=== PATIENT | male | born 1965 | race Caucasian/White ===

== ENCOUNTER 2017-09-23 23:58 | Observation (INO) | payer BC, OTHER ==
[2017-09-24] MEDS ORDERED: Sodium Chloride 0.9% 10 ML Syringe FLUSH PRN (00:07)
--- NOTE | 2017-09-24 00:09 | EDM.PDOC ---
ED HPI GENERAL MEDICAL PROBLEM - General Chief Complaint: Respiratory Problem Stated Complaint: Shortness of breath, cough Time Seen by Provider: 09/24/17 00:04 Source of Information: Reports: Patient, Family, RN, RN Notes Reviewed History Limitations: Reports: No Limitations - History of Present Illness INITIAL COMMENTS - FREE TEXT/NARRATIVE: Patient presents to the ED at [facility] with a one day history of cough, SOB, and fevers. Patient's states symptoms began yesterday with a fever of 102. Patient has not tried any OTC medications. Patient states his cough is dry and non-productive. No chest pain. He states he feels very SOB. Patient has a history of a liver transplant so the is concerned about being immunocompromised. Patient denies any N/V/D. No close contacts or family members with similar symptoms. He does state his symptoms started as a head cold and progressed since then. Onset: Gradual Onset Date: 09/23/17 Duration: Constant, Getting Worse left upper chest Pain Score (Numeric/FACES): 5 - Related Data Allergies Allergy/AdvReac Type Severity Reaction Status Date / Time No Known Allergies Allergy Verified 09/24/17 00:18 Home Meds: Home Meds Aspirin [Halfprin] 81 mg PO DAILY 09/24/17 [History] Tacrolimus [Prograf] 3 mg PO BID 09/24/17 [History] Past Medical History Cardiovascular History: Reports: Hypertension Gastrointestinal History: Reports: Hepatitis (Alcoholic Hepatitis with ascites) Psychiatric History: Reports: Depression - Past Surgical History Other GI Surgeries/Procedures: s/p Liver transplant 2013 Social & Family History - Family History Family Medical History: Noncontributory - Tobacco Use Smoking Status *Q: Never Smoker Tobacco Use Within Last Twelve Months: No - Alcohol Use Alcohol Use History: Yes Alcohol Use in Last Twelve Months: No - Living Situation & Occupation Living situation: Reports: , with Spouse Occupation: Employed ED ROS GENERAL - Review of Systems Review Of Systems: See Below Constitutional: Reports: Fever, Decreased Appetite. Denies: Chills, Weakness HEENT: Reports: Sinus Problem Respiratory: Reports: Shortness of Breath. Denies: Wheezing, Sputum Cardiovascular: Denies: Chest Pain, Palpitations GI/Abdominal: Denies: Abdominal Pain, Nausea, Vomiting Skin: Reports: No Symptoms Neurological: Reports: No Symptoms. Denies: Dizziness, Headache ED EXAM, GENERAL - Physical Exam Exam: See Below Exam Limited By: No Limitations General Appearance: Alert, No Apparent Distress Eye Exam: Bilateral Eye: Normal Inspection, PERRL Ears: Normal External Exam, Normal Canal, Hearing Grossly Normal Ear Exam: Bilateral Ear: TM normal Nose: Clear Rhinorrhea Throat/Mouth: Normal Inspection, Normal Oropharynx, No Airway Compromise Neck: Supple Respiratory/Chest: No Respiratory Distress, Decreased Breath Sounds Cardiovascular: Normal Peripheral Pulses, Tachycardia Peripheral Pulses: 2+: Radial (L), Radial (R) GI/Abdominal: Normal Bowel Sounds, Soft, Non-Tender Neurological: Alert, Oriented Skin Exam: Warm, Dry, Intact, Normal Color, No Rash EKG INTERPRETATION EKG Date: 09/24/17 Time: 00:10 Rhythm: NSR Rate (Beats/Min): 93 Marvin: Normal P-Wave: Present QRS: Normal ST-T: Normal QT: Normal VA/PQ Interval: 0.14 Comparison: NA - No Prior EKG EKG Interpretation Comments: 1. Sinus Rhythm 2. Possible IWMI, probably old 3. Borderline ECG Course - Vital Signs Last Recorded V/S: Last Vital Signs Temp 37.0 C 09/23/17 23:58 Pulse 102 H 09/23/17 23:58 Resp 32 H 09/23/17 23:58 BP 166/87 H 09/23/17 23:58 Pulse Ox 100 09/23/17 23:58 - Orders/Labs/Meds Orders: Active Orders 24 hr Category Date Time Status Admission Status [Patient Status] [ADT] Routine ADT 09/24/17 01:34 Ordered EKG 12 Lead [EKG Documentation Completion] [RC] STAT Care 09/24/17 00:05 Ordered Chest 2V [CR] Stat Exams 09/24/17 00:06 Taken CARBOXY-THC BY GC/MS Stat Lab 09/24/17 01:14 Received Sodium Chloride 0.9% [Saline Flush] Med 09/24/17 00:07 Active 10 ml FLUSH ASDIRECTED PRN Peripheral IV Insertion Adult [OM.PC] Routine Oth 09/24/17 00:07 Ordered Medication Orders Sodium Chloride (Saline Flush) 10 ml FLUSH ASDIRECTED PRN PRN Reason: Keep Vein Open Labs: Laboratory Tests 09/24/17 09/24/17 09/24/17 Range/Units 00:29 00:29 00:29 WBC 7.7 (4.0-10.0) x10^3/uL RBC 4.51 (4.5-6.0) x10^6/uL Hgb 14.8 (14.0-18.0) g/dL Hct 41.8 (40.0-52.0) % MCV 92.7 (78.0-93.0) fL MCH 32.8 H (26.0-32.0) pg MCHC 35.4 (32.0-36.0) g/dL RDW Coeff of Luma 12.1 (10.0-15.0) % Plt Count 170 (130-400) x10^3/uL Neut % (Auto) 82.0 H (50.0-80.0) % Lymph % (Auto) 5.2 L (25.0-50.0) % [place] % (Auto) 9.3 (2.0-11.0) % Eos % (Auto) 3.1 (0.0-4.0) % Baso % (Auto) 0.4 (0.2-1.2) % PT 10.5 (9.8-11.8) SEC INR 1.0 L (2.0-3.5) D-Dimer, Quantitative 0.55 (<=0.58) mg/LFEU Sodium 134 L (136-145) mmol/L Potassium 4.2 (3.5-5.1) mmol/L Chloride 100 (98-107) mmol/L Carbon Dioxide 23 (21-32) mmol/L BUN 25 H (7-18) mg/dL Creatinine 1.6 H (0.70-1.30) mg/dL Est Cr Clr Drug Dosing 48.18 mL/min Estimated GFR (MDRD) 45 Glucose 196 H (74-106) mg/dL Lactic Acid (0.4-2.0) mmol/L Calcium 8.6 (8.5-10.1) mg/dL Corrected Calcium 8.92 (8.5-10.1) mg/dL Total Bilirubin 0.9 (0.2-1.0) mg/dL AST 34 (15-37) U/L ALT 54 (16-63) U/L Alkaline Phosphatase 110 (46-116) U/L Creatine Kinase 96 (39-308) U/L Creatine Kinase Index TNP CK-MB (CK-2) TNP Troponin I < 0.017 (<=0.056) ng/mL C-Reactive Protein 4.1 H (<=0.9) mg/dL Total Protein 7.1 (6.4-8.2) g/dL Albumin 3.6 (3.4-5.0) g/dL Globulin 3.5 Albumin/Globulin Ratio 1.03 Urine Color (YELLOW) Urine Appearance (CLEAR) Urine pH (5.0-8.0) Ur Specific [place] Urine Protein (NEGATIVE) mg/dL Urine Glucose (UA) (NEGATIVE) mg/dL Urine Ketones (NEGATIVE) mg/dL Urine Occult Blood (NEGATIVE) Urine Nitrite (NEGATIVE) Urine Bilirubin (NEGATIVE) Urine Urobilinogen (0.2) EU/dL Ur Leukocyte Esterase (NEGATIVE) Urine RBC (NOT SEEN) /HPF Urine WBC (NOT SEEN) /HPF Ur Squamous Epith Cells (NEGATIVE) /HPF Urine Bacteria (NEGATIVE) /HPF Urine Mucus (NEGATIVE) /LPF Urine Opiates Screen (NEAGTIVE) Ur Buprenorphine Scrn (NEGATIVE) Ur Oxycodone Screen (NEGATIVE) Urine Methadone Screen (NEGATIVE) Ur Barbiturates Screen (NEGATIVE) Ur Tricyclics Screen (NEGATIVE) Ur Amphetamine Screen (NEGATIVE) U Methamphetamines Scrn (NEGATIVE) Urine MDMA Screen (NEGATIVE) U Benzodiazepines Scrn (NEGATIVE) U Cocaine Metab Screen (NEGATIVE) U Marijuana (THC) Screen (NEGATIVE) 09/24/17 09/24/17 09/24/17 Range/Units 00:29 01:14 01:14 WBC (4.0-10.0) x10^3/uL RBC (4.5-6.0) x10^6/uL Hgb (14.0-18.0) g/dL Hct (40.0-52.0) % MCV (78.0-93.0) fL MCH (26.0-32.0) pg MCHC (32.0-36.0) g/dL RDW Coeff of Luma (10.0-15.0) % Plt Count (130-400) x10^3/uL Neut % (Auto) (50.0-80.0) % Lymph % (Auto) (25.0-50.0) % [place] % (Auto) (2.0-11.0) % Eos % (Auto) (0.0-4.0) % Baso % (Auto) (0.2-1.2) % PT (9.8-11.8) SEC INR (2.0-3.5) D-Dimer, Quantitative (<=0.58) mg/LFEU Sodium (136-145) mmol/L Potassium (3.5-5.1) mmol/L Chloride (98-107) mmol/L Carbon Dioxide (21-32) mmol/L BUN (7-18) mg/dL Creatinine (0.70-1.30) mg/dL Est Cr Clr Drug Dosing mL/min Estimated GFR (MDRD) Glucose (74-106) mg/dL Lactic Acid 2.0 (0.4-2.0) mmol/L Calcium (8.5-10.1) mg/dL Corrected Calcium (8.5-10.1) mg/dL Total Bilirubin (0.2-1.0) mg/dL AST (15-37) U/L ALT (16-63) U/L Alkaline Phosphatase (46-116) U/L Creatine Kinase (39-308) U/L Creatine Kinase Index CK-MB (CK-2) Troponin I (<=0.056) ng/mL C-Reactive Protein (<=0.9) mg/dL Total Protein (6.4-8.2) g/dL Albumin (3.4-5.0) g/dL Globulin Albumin/Globulin Ratio Urine Color Dark yellow H (YELLOW) Urine Appearance Clear (CLEAR) Urine pH 7.0 (5.0-8.0) Ur Specific [place] 1.015 Urine Protein Trace H (NEGATIVE) mg/dL Urine Glucose (UA) Negative (NEGATIVE) mg/dL Urine Ketones Negative (NEGATIVE) mg/dL Urine Occult Blood Negative (NEGATIVE) Urine Nitrite Negative (NEGATIVE) Urine Bilirubin Negative (NEGATIVE) Urine Urobilinogen 0.2 (0.2) EU/dL Ur Leukocyte Esterase Negative (NEGATIVE) Urine RBC Not seen (NOT SEEN) /HPF Urine WBC Not seen (NOT SEEN) /HPF Ur Squamous Epith Cells Not seen (NEGATIVE) /HPF Urine Bacteria Not seen (NEGATIVE) /HPF Urine Mucus Not seen (NEGATIVE) /LPF Urine Opiates Screen Negative (NEAGTIVE) Ur Buprenorphine Scrn Negative (NEGATIVE) Ur Oxycodone Screen Negative (NEGATIVE) Urine Methadone Screen Negative (NEGATIVE) Ur Barbiturates Screen Negative (NEGATIVE) Ur Tricyclics Screen Negative (NEGATIVE) Ur Amphetamine Screen Negative (NEGATIVE) U Methamphetamines Scrn Negative (NEGATIVE) Urine MDMA Screen Negative (NEGATIVE) U Benzodiazepines Scrn Negative (NEGATIVE) U Cocaine Metab Screen Negative (NEGATIVE) U Marijuana (THC) Screen Positive H (NEGATIVE) Meds: Medications Generic Name Dose Route Start Last Admin Trade Name Freq PRN Reason Stop Dose Admin Sodium Chloride 10 ml 09/24/17 00:07 Saline Flush FLUSH ASDIRECTED PRN Keep Vein Open Discontinued Medications Generic Name Dose Route Start Last Admin Trade Name Freq PRN Reason Stop Dose Admin Sodium Chloride 1,000 mls @ 999 mls/hr 09/24/17 00:17 09/24/17 00:50 Normal Saline IV 09/24/17 01:17 999 mls/hr NOW STA Administration Levalbuterol HCl 1.25 mg 09/24/17 00:17 09/24/17 00:30 Xopenex NEB 09/24/17 00:18 1.25 mg ONETIME ONE Administration Lorazepam 1 mg 09/24/17 00:18 09/24/17 00:57 Ativan IVPUSH 09/24/17 00:19 1 mg ONETIME ONE Administration Methylprednisolone Sodium Succinate 125 mg 09/24/17 00:19 09/24/17 00:52 Solu-Medrol IVPUSH 09/24/17 00:20 125 mg ONETIME ONE Administration - Radiology Interpretation Free Text/Narrative:: CXR: Normal chest xray - see scanned report in EMR Departure - Departure Time of Disposition: 01:36 Disposition: Refer to Observation Condition: Good Clinical Impression: Shortness of breath at rest, Dehydration - Discharge Information - Problem List & Annotations (1) Shortness of breath at rest SNOMED Code(s): 667900844 Code(s): R06.02 - SHORTNESS OF BREATH Status: Acute Priority: Medium Current Visit: Yes Onset Date: ~09/23/17 (2) Dehydration SNOMED Code(s): 39096620 Code(s): E86.0 - DEHYDRATION Status: Acute Priority: Medium Current Visit: Yes Onset Date: ~09/23/17 - Problem List Review Problem List Initiated/Reviewed/Updated: Yes - My Orders Last 24 Hours: My Active Orders 09/24/17 00:05 EKG 12 Lead [EKG Documentation Completion] [RC] STAT 09/24/17 00:06 Chest 2V [CR] Stat 09/24/17 00:07 Sodium Chloride 0.9% [Saline Flush] 10 ml FLUSH ASDIRECTED PRN Peripheral IV Insertion Adult [OM.PC] Routine 09/24/17 01:14 CARBOXY-THC BY GC/MS Stat 09/24/17 01:34 Admission Status [Patient Status] [ADT] Routine - Assessment/Plan Admission H&P: Please use this note as an admission H&P Last 24 Hours: My Active Orders 09/24/17 00:05 EKG 12 Lead [EKG Documentation Completion] [RC] STAT 09/24/17 00:06 Chest 2V [CR] Stat 09/24/17 00:07 Sodium Chloride 0.9% [Saline Flush] 10 ml FLUSH ASDIRECTED PRN Peripheral IV Insertion Adult [OM.PC] Routine 09/24/17 01:14 CARBOXY-THC BY GC/MS Stat 09/24/17 01:34 Admission Status [Patient Status] [ADT] Routine Plan: Labs and xray discussed with patient. He continue to have chills, generalized body aches, and headache. Continue to have a low grade fever and SOB. Labs do show dehydration. Will admit observation to see if anything shows up and given patients continues symptoms.
[2017-09-24] MEDS ORDERED: Sodium Chloride 0.9% 1,000 ML IV STA (00:17)
[2017-09-24] MEDS ORDERED: Levalbuterol HCl 1.25 MG/0.5 ML Neb NEB ONE (00:17)
[2017-09-24] MEDS ORDERED: LORazepam 2 MG/ML MDV IVPUSH ONE (00:18)
[2017-09-24] MEDS ORDERED: methylPREDNISolone Sodium Succinate 125 MG/2 ML SDV IVPUSH ONE (00:19)
[2017-09-24 01:08] LABS: CHLORIDE,CL 100 mmol/L (98-107); SODIUM,NA 134 mmol/L (136-145)
[2017-09-24] MEDS ORDERED: Ondansetron 4 MG Tab.DIS PO PRN (01:45)
[2017-09-24] MEDS ORDERED: Acetaminophen 325 MG Tab PO PRN (01:45)
[2017-09-24] MEDS ORDERED: Acetaminophen/HYDROcodone 325-5 MG Tab PO PRN (01:45)
[2017-09-24] MEDS ORDERED: Sodium Chloride 0.9% 1,000 ML IV SCH (02:00)
[2017-09-24] MEDS ORDERED: Azithromycin 500 MG in Sodium Chloride 0.9% 250 ML IV SCH (02:00)
[2017-09-24] MEDS: Albuterol/Ipratropium 3.0-0.5 MG/3 ML Neb Soln NEB PRN ×2 (02:36→10:20)
--- NOTE | 2017-09-24 02:41 | PCM.HP ---
H&P History of Present Illness - General Date of Service: 09/24/17 Admit Problem/Dx: Admission Diagnosis/Problem Admission Diagnosis/Problem Shortness of breath Dehydration Source of Information: Patient, Family, RN, RN Notes Reviewed History Limitations: Reports: No Limitations - History of Present Illness Initial Comments - Free Text/Narative: 52-year-old male patient presented to the emergency room at [facility] with a one-day history of worsening shortness of breath, dry nonproductive cough, chills, generalized body aches. The patient states that his symptoms began around noon yesterday. The patient did not try any [id number] cold and flu medications for his symptoms. The patient states that his symptoms originally started last Saturday with an upper respiratory symptomatology. The patient states he got concerned today when the shortness of breath started and progressively got worse. The patient is concerned because he is immunocompromised status post liver transplant. The patient is currently taking Prograf. The patient did not have any nausea vomiting or diarrhea. No focal neurological deficits. The patient did not have any acute chest pain. In the emergency room the patient was given 1 DuoNeb with good relief and he was also given IV Ativan and IV Solu-Medrol. Chest x-ray did not show any acute findings. The patient's blood work was essentially normal with the exception of dehydration. The patient did test positive for marijuana on his drug screen. The patient was given 1 L of normal saline due to being immunocompromised versus being given lactated Ringer's. EKG was normal. Cardiac enzymes were negative. The patient has a low suspicion for PE given her normal d-dimer. Symptom Onset Date: 09/23/17 Duration of Symptoms: Reports: Waxing/Waning Location: Reports: Generalized Quality: Reports: Ache Severity: Mild Improves with: Reports: Rest Worsens with: Reports: Movement Context: Denies: Sick Contact, Trauma Associated Symptoms: Reports: Cough, Fever/Chills, Headaches Generalized Pain Score (Numeric/FACES): 7 left upper chest Pain Score (Numeric/FACES): 5 - Related Data Allergies/Adverse Reactions: Allergies Allergy/AdvReac Type Severity Reaction Status Date / Time No Known Allergies Allergy Verified 09/24/17 00:18 Home Medications: Home Meds Aspirin [Halfprin] 81 mg PO DAILY 09/24/17 [History] Tacrolimus [Prograf] 3 mg PO BID 09/24/17 [History] Past Medical History Cardiovascular History: Reports: Hypertension Gastrointestinal History: Reports: Hepatitis Other Gastrointestinal History: incisional hernia Psychiatric History: Reports: Depression - Infectious Disease History 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,B,C - Past Surgical History HEENT Surgical History: Reports: None Cardiovascular Surgical History: Reports: None GI Surgical History: Reports: Appendectomy, Cholecystectomy, Colonoscopy, Hernia Repair/Other Other GI Surgeries/Procedures: s/p Liver transplant 2014 Other Musculoskeletal Surgeries/Procedures:: right knee cap replaced Social & Family History - Family History Family Medical History: Noncontributory - Tobacco Use Smoking Status *Q: Never Smoker Second Hand Smoke Exposure: No - Caffeine Use Caffeine Use: Reports: None - Alcohol Use Days Per Week of Alcohol Use: 1 Number of Drinks Per Day: 7 Total Drinks Per Week: 7 Date of Last Drink: 09/22/16 - Recreational Drug Use Recreational Drug Use: Yes Drug Use in Last 12 Months: Yes Recreational Drug Type: Reports: Marijuana/Hashish Recreational Drug Use Frequency: Weekly - Living Situation & Occupation Living situation: Reports: , with Spouse Occupation: Employed H&P Review of Systems - Review of Systems: Review Of Systems: See Below General: Reports: Fever, Chills, Decreased Appetite, Other (generalized body aches). Denies: Weakness HEENT: Reports: Rhinitis Pulmonary: Reports: Shortness of Breath, Cough. Denies: Sputum Cardiovascular: Denies: Chest Pain, Palpitations Gastrointestinal: Denies: Abdominal Pain, Nausea, Vomiting Skin: Reports: No Symptoms Neurological: Reports: Headache. Denies: Dizziness Exam - Exam Exam: See Below - Vital Signs Vital Signs: Last Vital Signs Temp 37.2 C 09/24/17 01:45 Pulse 100 09/24/17 01:45 Resp 22 H 09/24/17 01:45 BP 162/100 H 09/24/17 01:45 Pulse Ox 95 09/24/17 01:45 Weight: 100.153 kg - Exam General: Alert, Oriented HEENT: Conjunctiva Clear, Posterior Pharynx Clear, Pupils Equal, Pupils Reactive Neck: Supple Lungs: Normal Respiratory Effort, Decreased Breath Sounds Cardiovascular: Regular Rate, Regular Rhythm, Normal S1, Normal S2 GI/Abdominal Exam: Normal Bowel Sounds, Soft, Non-Tender Peripheral Pulses: 2+: Radial (L), Radial (R) Skin: Warm, Dry, Intact Neuro Extensive - Mental Status: Alert, Oriented x3 - Patient Data Result Diagrams: 09/24/17 00:29 09/24/17 00:29 *Q Meaningful Use (ADM) - VTE *Q VTE Criteria *Q: No risk for falls - Stroke *Q Stroke Criteria *Q: - AMI *Q AMI Criteria *Q: - Problem List (1) Shortness of breath at rest SNOMED Code(s): 629769086 ICD Code: R06.02 - SHORTNESS OF BREATH Status: Acute Priority: Medium Current Visit: Yes Onset Date: ~09/23/17 (2) Dehydration SNOMED Code(s): 63392750 ICD Code: E86.0 - DEHYDRATION Status: Acute Priority: Medium Current Visit: Yes Onset Date: ~09/23/17 (3) Alcoholic hepatitis with ascites SNOMED Code(s): 618818926 ICD Code: K70.11 - ALCOHOLIC HEPATITIS WITH ASCITES Status: Chronic Current Visit: No Problem Details: Continue with no alcohol; patient is s/p liver transplant (4) Essential hypertension SNOMED Code(s): 64088571 ICD Code: I10 - ESSENTIAL (PRIMARY) HYPERTENSION Status: Chronic Current Visit: No Problem Details: Monitor; recommend no salt diet (5) Depression SNOMED Code(s): 01322065 ICD Code: F32.9 - MAJOR DEPRESSIVE DISORDER, SINGLE EPISODE, UNSPECIFIED Status: Chronic Current Visit: No Problem Details: Continue to monitor; no interventions needed Qualifiers: Depression Type: major depressive disorder Major depression recurrence: recurrent Active/Remission status: currently active Major depression episode severity: mild Qualified Code(s): F33.0 - Major depressive disorder, recurrent, mild (6) Status post liver transplant Status: Chronic Priority: Low Current Visit: No Problem List Initiated/Reviewed/Updated: Yes Orders Last 24hrs: Active Orders 24 hr Category Date Time Status Patient Status [ADT] Routine ADT 09/24/17 01:45 Active Ambulate [RC] ASDIRECTED Care 09/24/17 01:45 Active Height and Weight [RC] UPON Care 09/24/17 01:45 Active Intake and Output [RC] QSHIFT Care 09/24/17 01:46 Active May Shower [RC] ASDIRECTED Care 09/24/17 01:45 Active Oxygen Therapy [RC] PRN Care 09/24/17 01:45 Active RT Aerosol Therapy [RC] ASDIRECTED Care 09/24/17 01:48 Active VTE/DVT Education [RC] PER UNIT ROUTINE Care 09/24/17 01:45 Active Vital Signs [RC] Q4H Care 09/24/17 01:45 Active Consult to Case Management [CONS] Routine Cons 09/24/17 01:45 Active Heart Healthy Diet [DIET] Diet 09/24/17 Breakfast Active Chest 2V [CR] Routine Exams 09/24/17 08:00 Ordered BASIC METABOLIC PANEL,BMP [CHEM] Routine Lab 09/24/17 05:11 Ordered CBC WITH AUTO DIFF [HEME] Routine Lab 09/24/17 05:11 Ordered Acetaminophen [Tylenol] Med 09/24/17 01:45 Active 650 mg PO Q4H PRN Acetaminophen/HYDROcodone [[place] 325-5 MG] Med 09/24/17 01:45 Active 1 tab PO Q6H PRN Albuterol/Ipratropium [DuoNeb 3.0-0.5 MG/3 ML] Med 09/24/17 01:45 Active 3 ml NEB Q4H PRN Aspirin [Halfprin] Med 09/24/17 08:00 Active 81 mg PO DAILY Azithromycin [Zithromax] 500 mg Med 09/24/17 02:00 Active Sodium Chloride 0.9% [Normal Saline] 250 ml IV DAILY@0200 Meperidine [Demerol] Med 09/24/17 01:50 Active 12.5 mg IVPUSH Q6H PRN Ondansetron [Zofran ODT] Med 09/24/17 01:45 Active 4 mg PO Q6H PRN Sodium Chloride 0.9% [Normal Saline] 1,000 ml Med 09/24/17 02:00 Active IV ASDIRECTED Tacrolimus Med 09/24/17 08:00 Pending 3 mg PO BID methylPREDNISolone Sod Succ [Solu-MEDROL] Med 09/24/17 12:00 Active 40 mg IVPUSH Q12H Resuscitation Status Routine Resus Stat 09/24/17 01:45 Ordered Medication Orders Acetaminophen (Tylenol) 650 mg PO Q4H PRN PRN Reason: Pain (Mild 1-3)/fever Hydrocodone Bitart/Acetaminophen ([place] 325-5 Mg) 1 tab PO Q6H PRN PRN Reason: Pain (moderate 4-6) Last Admin: 09/24/17 02:34 Dose: 1 tab Albuterol/Ipratropium (Duoneb 3.0-0.5 Mg/3 Ml) 3 ml NEB Q4H PRN PRN Reason: dyspnea/wheezing Last Admin: 09/24/17 02:36 Dose: 3 ml Aspirin (Halfprin) 81 mg PO DAILY MACI Sodium Chloride (Normal Saline) 1,000 mls @ 125 mls/hr IV ASDIRECTED MACI Last Admin: 09/24/17 02:26 Dose: 125 mls/hr Azithromycin 500 mg/ Sodium (Chloride) 250 mls @ 250 mls/hr IV DAILY@0200 MACI Last Admin: 09/24/17 02:26 Dose: 250 mls/hr Meperidine HCl (Demerol) 12.5 mg IVPUSH Q6H PRN PRN Reason: Pain (severe 7-10) Methylprednisolone Sodium Succinate (Solu-Medrol) 40 mg IVPUSH Q12H MACI Non-Formulary Medication (Tacrolimus) 3 mg PO BID MACI Ondansetron HCl (Zofran Odt) 4 mg PO Q6H PRN PRN Reason: nausea, able to take PO Last Admin: 09/24/17 02:34 Dose: 4 mg Sodium Chloride (Saline Flush) 10 ml FLUSH ASDIRECTED PRN PRN Reason: Keep Vein Open Assessment/Plan Comment:: 52-year-old male patient with a past medical history of alcoholic hepatitis with ascites, hypertension, depression, status post liver transplant is admitted to the observation unit at [facility] for shortness of breath of unknown etiology, and dehydration. The patient will be rehydrated with normal saline versus lactated Ringer's due to immunocompromise status. We will order DuoNeb nebs when necessary. I will start the patient on Solu-Medrol 40 mg IV the for his shortness of breath. I will empirically treat the patient with azithromycin and cover any atypicals with Flagyl. Recheck blood work in the morning. I am also going to recheck a chest x-ray in the a.m. The patient's influenza screen in the emergency room was negative, however the patient continues to exhibit symptoms of influenza. I would encourage frequent ambulation for DVT prophylaxis. The patient is a full code. The patient does wish to be transferred to a higher level of care should the need arise. I do anticipate the patient to be admitted for less than 48 hours. Continue home medications without any changes.
[2017-09-24] MEDS: metroNIDAZOLE/Normal Saline 500 MG in Premix Bag 1 BAG IV SCH ×2 (03:34→11:44)
[2017-09-24] MEDS: Meperidine PF 100 MG/ML Syringe IVPUSH PRN ×2 (03:42→10:25)
[2017-09-24] MEDS ORDERED: TACROLIMUS PO SCH (08:00)
[2017-09-24] MEDS ORDERED: Aspirin 81 MG Tab.EC PO SCH (08:00)
[2017-09-24] MEDS ORDERED: Meperidine PF 25 MG/ML Syringe IVPUSH PRN (11:00)
[2017-09-24] MEDS ORDERED: methylPREDNISolone Sodium Succinate 40 MG/1 ML SDV IVPUSH SCH (12:00)
--- NOTE | 2017-09-24 13:11 | PCM.DCSUM1 ---
Discharge Summary - Hospital Course HPI Initial Comments: 52-year-old male patient presented to the emergency room at [facility] with a one-day history of worsening shortness of breath, dry nonproductive cough, chills, generalized body aches. The patient states that his symptoms began around noon yesterday. The patient did not try any [id number] cold and flu medications for his symptoms. The patient states that his symptoms originally started last Saturday with an upper respiratory symptomatology. The patient states he got concerned today when the shortness of breath started and progressively got worse. The patient is concerned because he is immunocompromised status post liver transplant. The patient is currently taking Prograf. The patient did not have any nausea vomiting or diarrhea. No focal neurological deficits. The patient did not have any acute chest pain. In the emergency room the patient was given 1 DuoNeb with good relief and he was also given IV Ativan and IV Solu-Medrol. Chest x-ray did not show any acute findings. The patient's blood work was essentially normal with the exception of dehydration. The patient did test positive for marijuana on his drug screen. The patient was given 1 L of normal saline due to being immunocompromised versus being given lactated Ringer's. EKG was normal. Cardiac enzymes were negative. The patient has a low suspicion for PE given her normal d-dimer. - Discharge Data Discharge Date: 09/24/17 Discharge Disposition: Home, Self-Care 01 Condition: Good - Discharge Diagnosis/Problem(s) (1) Shortness of breath at rest SNOMED Code(s): 363279424 ICD Code: R06.02 - SHORTNESS OF BREATH Status: Resolved Priority: Medium Current Visit: Yes Onset Date: ~09/23/17 (2) Dehydration SNOMED Code(s): 74540508 ICD Code: E86.0 - DEHYDRATION Status: Resolved Priority: Medium Current Visit: Yes Onset Date: ~09/23/17 (3) Alcoholic hepatitis with ascites SNOMED Code(s): 926082071 ICD Code: K70.11 - ALCOHOLIC HEPATITIS WITH ASCITES Status: Chronic Current Visit: No Problem Details: Continue with no alcohol; patient is s/p liver transplant (4) Essential hypertension SNOMED Code(s): 10608141 ICD Code: I10 - ESSENTIAL (PRIMARY) HYPERTENSION Status: Chronic Current Visit: No Problem Details: Monitor; recommend no salt diet (5) Depression SNOMED Code(s): 83557844 ICD Code: F32.9 - MAJOR DEPRESSIVE DISORDER, SINGLE EPISODE, UNSPECIFIED Status: Chronic Current Visit: No Problem Details: Continue to monitor; no interventions needed Qualifiers: Depression Type: major depressive disorder Major depression recurrence: recurrent Active/Remission status: currently active Major depression episode severity: mild Qualified Code(s): F33.0 - Major depressive disorder, recurrent, mild (6) Status post liver transplant Status: Chronic Priority: Low Current Visit: No - Patient Summary/Data Operative Procedure(s) Performed: None Consults: Consultations 09/24/17 01:45 Consult to Case Management [CONS] Routine Labs Pending at D/C: None Planned Operative Procedure(s) after DC: None Hospital Course: Overall patient did well staying in the hospital. The patient did require some IV narcotic pain medication for generalized body aches and headache. The patient remained afebrile and hemodynamically stable. The patient did not have any issues with urination or ball was. The patient does continue to have some nausea but feels it is getting better. The patient's shortness of breath has much improved. The patient did not have any chest pain. Patient was able to tolerate his diet as able. Patient ambulating independently. Patient tolerated IV antibiotics without any issues. - Patient Instructions Diet: Heart Healthy Diet Activity: Rest and Relax Today Driving: Do Not Drive Showering/Bathing: May Shower Notify Provider of: Fever, Increased Pain, Nausea and/or Vomiting - Discharge Plan Prescriptions/Med Rec: Azithromycin 1 tab PO DAILY 4 Days #4 tablet Home Medications: Home Meds Aspirin [Halfprin] 81 mg PO DAILY 09/24/17 [History] Azithromycin 1 tab PO DAILY 4 Days #4 tablet 09/24/17 [Rx] Tacrolimus [Prograf] 3 mg PO BID 09/24/17 [History] Patient Handouts: Dehydration, Adult, [id number], Rehydration, Adult Referrals: Cherelle Weber DO [Physician] - 09/26/17 9:40 am (You have a follow up appt. with Dr. Dorota Weber on September 26, 2017 at 9:40 at [facility]) - Discharge Summary/Plan Comment DC Time >30 min.: No Discharge Summary/Plan Comment: 52-year-old male patient with a past medical history of alcoholic hepatitis with ascites, depression, hypertension, status post liver transplant was admitted to the observation unit at [facility] with a diagnosis of shortness of breath and dehydration, body aches, generalized pain. The patient will be discharged home today. There was no etiology found for the patient's symptoms. Recommend that the patient follow-up with his primary care provider in the next week. I will continue the patient on Zithromax for the next 4 days. Discussed with patient to use [id number] cough medicine. The patient did request narcotic pain medication for home, I did pleasantly declined and deferred to primary care. Patient discharged in stable condition. - General Info Date of Service: 09/24/17 Admission Dx/Problem (Free Text: Admission Diagnosis/Problem Admission Diagnosis/Problem Shortness of breath Dehydration Functional Status: Reports: Tolerating Diet, Ambulating, Urinating - Review of Systems General: Denies: Fever, Weakness Pulmonary: Denies: Shortness of Breath, Sputum Cardiovascular: Denies: Chest Pain, Palpitations Gastrointestinal: Reports: Nausea. Denies: Abdominal Pain, Vomiting Musculoskeletal: Reports: Other (Generalized body aches/pain) Skin: Reports: No Symptoms Neurological: Reports: Headache - Patient Data Vitals - Most Recent: Last Vital Signs Temp 37.1 C 09/24/17 09:53 Pulse 87 09/24/17 09:53 Resp 20 09/24/17 09:53 BP 167/88 H 09/24/17 09:53 Pulse Ox 95 09/24/17 09:53 Weight - Most Recent: 100.153 kg I&O - Last 24 hours: Intake & Output 09/23/17 09/24/17 09/24/17 22:59 06:59 14:59 Intake Total 2651 300 Output Total 650 Balance 2000 300 Lab Results - Last 24 hrs: Laboratory Results - last 24 hr 09/24/17 09/24/17 09/24/17 Range/Units 06:32 06:32 06:32 WBC 6.2 (4.0-10.0) x10^3/uL RBC 4.22 L (4.5-6.0) x10^6/uL Hgb 13.6 L (14.0-18.0) g/dL Hct 39.6 L (40.0-52.0) % MCV 93.8 H (78.0-93.0) fL MCH 32.2 H (26.0-32.0) pg MCHC 34.3 (32.0-36.0) g/dL RDW Coeff of [place] 11.9 (10.0-15.0) % Plt Count 148 (130-400) x10^3/uL Neut % (Auto) 94.9 H (50.0-80.0) % Lymph % (Auto) 3.1 L (25.0-50.0) % [place] % (Auto) 1.5 L (2.0-11.0) % Eos % (Auto) 0.3 (0.0-4.0) % Baso % (Auto) 0.2 (0.2-1.2) % Sodium 136 (136-145) mmol/L Potassium 3.9 (3.5-5.1) mmol/L Chloride 102 (98-107) mmol/L Carbon Dioxide 22 (21-32) mmol/L BUN 22 H (7-18) mg/dL Creatinine 1.6 H (0.70-1.30) mg/dL Est Cr Clr Drug Dosing 48.18 mL/min Estimated GFR (MDRD) 45 Glucose 290 H (74-106) mg/dL Calcium 7.7 L (8.5-10.1) mg/dL NT-Pro-B Natriuret Pep 1059 H (<=125) pg/mL Med Orders - Current: Current Medications Acetaminophen (Tylenol) 650 mg PO Q4H PRN PRN Reason: Pain (Mild 1-3)/fever Hydrocodone Bitart/Acetaminophen ([place] 325-5 Mg) 1 tab PO Q6H PRN PRN Reason: Pain (moderate 4-6) Last Admin: 09/24/17 02:34 Dose: 1 tab Albuterol/Ipratropium (Duoneb 3.0-0.5 Mg/3 Ml) 3 ml NEB Q4H PRN PRN Reason: dyspnea/wheezing Last Admin: 09/24/17 10:20 Dose: 3 ml Aspirin (Halfprin) 81 mg PO DAILY [facility] Last Admin: 09/24/17 07:12 Dose: 81 mg Sodium Chloride (Normal Saline) 1,000 mls @ 125 mls/hr IV ASDIRECTED [facility] Last Admin: 09/24/17 02:26 Dose: 125 mls/hr Azithromycin 500 mg/ Sodium (Chloride) 250 mls @ 250 mls/hr IV DAILY@0200 [facility] Last Admin: 09/24/17 02:26 Dose: 250 mls/hr Metronidazole 500 mg/ Premix 100 mls @ 100 mls/hr IV Q8H [facility] Last Infusion: 09/24/17 11:48 Dose: 100 mls/hr Meperidine HCl (Demerol) 12.5 mg IVPUSH Q6H PRN PRN Reason: Pain (severe 7-10) Methylprednisolone Sodium Succinate (Solu-Medrol) 40 mg IVPUSH Q12H [facility] Last Admin: 09/24/17 11:44 Dose: 40 mg Tacrolimus 1 Mg Caps (Dose = 3mg) Own Med 0 mg PO BID [facility] Last Admin: 09/24/17 07:12 Dose: 3 mg Ondansetron HCl (Zofran Odt) 4 mg PO Q6H PRN PRN Reason: nausea, able to take PO Last Admin: 09/24/17 02:34 Dose: 4 mg Sodium Chloride (Saline Flush) 10 ml FLUSH ASDIRECTED PRN PRN Reason: Keep Vein Open Discontinued Medications Sodium Chloride (Normal Saline) 1,000 mls @ 999 mls/hr IV NOW STA Stop: 09/24/17 01:17 Last Admin: 09/24/17 00:50 Dose: 999 mls/hr Levalbuterol HCl (Xopenex) 1.25 mg NEB ONETIME ONE Stop: 09/24/17 00:18 Last Admin: 09/24/17 00:30 Dose: 1.25 mg Lorazepam (Ativan) 1 mg IVPUSH ONETIME ONE Stop: 09/24/17 00:19 Last Admin: 09/24/17 00:57 Dose: 1 mg Meperidine HCl (Demerol) 12.5 mg IVPUSH Q6H PRN PRN Reason: Pain (severe 7-10) Last Admin: 09/24/17 10:25 Dose: 12.5 mg Methylprednisolone Sodium Succinate (Solu-Medrol) 125 mg IVPUSH ONETIME ONE Stop: 09/24/17 00:20 Last Admin: 09/24/17 00:52 Dose: 125 mg - Exam General: Reports: Alert, Oriented Neck: Reports: Supple Lungs: Reports: Clear to Auscultation, Normal Respiratory Effort Cardiovascular: Reports: Regular Rate, Regular Rhythm, No Murmurs GI/Abdominal Exam: Normal Bowel Sounds, Soft, Non-Tender Extremities: Normal Inspection Skin: Reports: Warm, Dry, Intact Neurological: Reports: No New Focal Deficit *Q Meaningful Use (DIS) - VTE *Q VTE Criteria *Q: No risk for falls - Stroke *Q Stroke Criteria *Q: - AMI *Q AMI Criteria *Q:
== END 2017-09-24 14:25 | disposition home or self-care (01) ==
LOC: VM.ED 23:58 → VM.MS 09-24 01:34
PROVIDERS: ADMIT Nurse Practitioner Family; ATTEND Nurse Practitioner Family
DX: R06.02 Shortness of breath (principal); E86.0 Dehydration; K70.11 Alcoholic hepatitis with ascites; F33.0 Major depressive disorder, recurrent, mild; I10 Essential (primary) hypertension; Z94.4 Liver transplant status; Z79.82 Long term (current) use of aspirin; Z79.899 Other long term (current) drug therapy
CPT/HCPCS: 36415; 71046; 80048; 80053; 80305; 80349; 81001; 82550; 83605; 83880; 84484; 85025; 85379; 85610; 86140; 87804; 93005; 94640; 96361; 96374; 96375; 99285; A9270; J0456; J2060; J2175; J2920; J2930; J7030; J7050; 96365; 96367; 96376; G0378